=== PATIENT | female | born 1990 | race Caucasian/White ===

== ENCOUNTER 2020-12-28 16:04 | Emergency (ER) | payer OTHER ==
[~2020-12-28 16:04] MED LIST: CLEOCIN HCL300 MG PO; COLACE 100MG C100 MG PO; FERROUS SULFAT325 M2 PO; IBUPROFEN600 MG PO; NORCO 5-325 TA1 EACH PO; NORCO 7.5-3251 EACH PO; NORFLEX 100 MG100 MG PO; TRAMADOL HCL50 MG PO; Viscous lidocaine2% TOP; Voltaren Gel 1 % TOP; ZANTAC150 MG PO; ZOFRAN4 MG PO
[2020-12-28 16:37] LABS: HEMOGLOBIN 15.8 gm/dl (12.3-15.3); RED BLOOD COUNT 4.84 M/UL (4.00-5.10)
[2020-12-28] MEDS ORDERED: CEFPODOXIME PR200 MG PO (18:14)
== END 2020-12-28 19:00 | disposition home or self-care (01) ==
LOC: ER1 16:04
PROVIDERS: Family Medicine
DX: N12 Tubulo-interstitial nephritis, not specified as acute or chronic (principal); N39.0 Urinary tract infection, site not specified; F17.210 Nicotine dependence, cigarettes, uncomplicated
CPT/HCPCS: 80053; 81001; 82150; 83690; 85025; 87086; 96365; 96375; 99284; J0696; J1885; J2270; J2405; Q9967